=== PATIENT | female | born 1990 | race Caucasian/White ===

== ENCOUNTER 2024-04-17 23:13 | Outpatient (REF) | payer BC, SELFPAY ==
[2024-04-17 23:43] LABS: Hemoglobin A1C 5.4 % (<5.7)
[2024-04-17 23:52] LABS: ALT 30 U/L (14-59); AST 21 U/L (15-37); Albumin 3.8 g/dL (3.4-5.0); Alkaline Phosphatase 180 U/L (46-116); Anion Gap 8.6 mmol/L (3-11); BUN 11 mg/dL (7-18); Bilirubin, Total 0.39 mg/dL (0.2-1.0); CO2 25.4 mmol/L (21.0-32.0); CREATININE 0.9 mg/dL (0.55-1.02); Calcium 9.5 mg/dL (8.5-10.1); Calculated LDL 107 mg/dL (<100); Chloride 106 mmol/L (98-107); Cholesterol 172 mg/dL (<200); Glucose 125 mg/dL (74-106); HDL Cholesterol 56 mg/dL (40-60); Potassium 4.4 mmol/L (3.5-5.1); Sodium 140 mmol/L (136-145); TSH (W/Ref FT4) 0.43 uIU/mL (0.36-3.74); Total Protein 7.9 g/dL (6.4-8.2); Triglyceride 48 mg/dL (<150)
== END 2024-04-17 23:14 | disposition home or self-care (01) ==
LOC: NCHCN 23:13
PROVIDERS: Visit Provider Family Medicine
DX: E66.9 Obesity, unspecified (principal); F41.9 Anxiety disorder, unspecified
CPT/HCPCS: 80053; 80061; 83036; 84443

== ENCOUNTER 2024-07-22 10:01 | Outpatient (REF) | payer BC, SELFPAY ==
[2024-07-22 15:22] LABS: GGT 22 U/L (5-55)
[2024-07-22 18:01] LABS: ALT 30 U/L (14-59); AST 18 U/L (15-37); Albumin 3.4 g/dL (3.4-5.0); Alkaline Phosphatase 189 U/L (46-116); Anion Gap 8.7 mmol/L (3-11); BUN 13 mg/dL (7-18); Bilirubin, Total 0.37 mg/dL (0.2-1.0); CO2 26.3 mmol/L (21.0-32.0); CREATININE 0.9 mg/dL (0.55-1.02); Calcium 9.1 mg/dL (8.5-10.1); Chloride 104 mmol/L (98-107); Glucose 100 mg/dL (74-106); Potassium 4.9 mmol/L (3.5-5.1); Sodium 139 mmol/L (136-145); Total Protein 7.1 g/dL (6.4-8.2)
[2024-07-31 14:11] LABS: Alkaline Phosphatase 179 U/L (35-104); Liver % 56.1 % (30.2-74.7)
[2024-07-31 14:12] LABS: Bone % 43.9 % (23.8-68.3)
== END 2024-07-22 10:02 | disposition home or self-care (01) ==
LOC: NCHCN 10:01
PROVIDERS: Visit Provider Family Medicine
DX: R74.8 Abnormal levels of other serum enzymes (principal); I10 Essential (primary) hypertension
CPT/HCPCS: 80053; 84075; 84080; 82977

== ENCOUNTER 2024-08-07 21:03 | Outpatient (REF) | payer BC, SELFPAY ==
[2024-08-07 22:01] LABS: PHOSPHORUS 3.6 mg/dL (2.6-4.7); TSH (W/Ref FT4) 0.88 uIU/mL (0.36-3.74)
[2024-08-07 23:22] LABS: Vitamin D 25 Total 16.5 ng/mL (30-100)
[2024-08-10 10:24] LABS: Parathyroid Hormone,Intact 86.7 pg/mL (19.0-88.0)
== END 2024-08-07 21:04 | disposition home or self-care (01) ==
LOC: NCHCN 21:03
PROVIDERS: Visit Provider Family Medicine
DX: R74.8 Abnormal levels of other serum enzymes (principal)
CPT/HCPCS: 82306; 83970; 84100; 84443